=== PATIENT | female | born 1955 | race Caucasian/White ===

== ENCOUNTER 2018-03-12 20:38 | Emergency (ER) | payer BC, OTHER ==
[~2018-03-12] VITALS: Ht 157.5 cm; Wt 61.2 kg
--- NOTE | ~2018-03-12 | EKG ---
[place] [address] [facility] [place] [address] ELECTROCARDIOGRAM REPORT Name: KENDRICK GHOSH Room #: DEP [facility]#: [id number] Admission: 03/12/18 Attend Phys: Discharge: 03/12/18 Date of : 53 Report #: [id number] THIS REPORT FOR: //name// [facility] ED Test Date: 2018-03-12 Test Time: 20:53:35 Pat Name: KENDRICK GHOSH Department: Room: Gender: F Validation Architect: Octaviano JEREZ : 1955 Requested By: Phyllis Roberts Order Number: [id number] MD: Matteo Alberts Measurements Intervals [place] Rate: 102 P: 56 NC: 193 QRS: 59 QRSD: 88 T: 51 QT: 331 QTc: 432 Interpretive Statements Sinus tachycardia Minimal ST depression, diffuse leads Compared to ECG 07/31/2016 12:04:07 Heart rate has increased Electronically Signed On 03-13-2018 8:19:42 CDT by Matteo Alberts [email or web address] <ELECTRONICALLY SIGNED> By: Matteo Alberts MD, LOCATED WITHIN [facility] 03/13/18 08 52 52 Matteo Alberts MD, FACC /EPI
[~2018-03-12 20:38] MED LIST: ADULT LOW DOSE81 MG PO; ALEVE220 MG PO; APAP650 PO; APPEAREX2500 MCG PO; AVAPRO 150 MG150 M1 PO; BENICAR 5 MG5 M1 PO; BENICAR20 MG PO; CALCIUM PO; CO Q-10100 MG PO; COLACE100 MG PO; CRESTOR10 MG PO; CULTURELLE1 EAC1 PO; FISH OIL 1,0001 EAC5 PO; FOSAMAX 70 MG T70 M1 PO; GLUCOSAMINE CH1 EAC7; HYDROCODONE-AP1 EAC6 PO; LEVOTHYROXINE0.05 MG PO; MIRALAX17 GM PO; MOBIC7.5 M1 PO; MOBIC7.5 MG PO; NEXIUM40 MG PO; NORCO 5-325 TA1 EACH PO; NORFLEX100 MG PO; PERCOCET 5-3251 EACH PO; PRILOSEC20 MG PO; SIMVASTATIN40 MG PO; SYNTHROID75 MCG PO; TIZANIDINE HCL 22 M1 PO; TOPROL XL25 MG PO; TOPROL XL50 MG PO; TRAMADOL 50 MG50 MG PO; TYLENOL325 MG PO; VENTOLIN HFA 1818 GM INH; VITAMIN B-12500 MCG PO; VITAMIN D1000 UNI1 PO
[2018-03-12 22:36] LABS: ABSOLUTE NEUTROPHILS 6.3 thou/uL (1.4-8.2); BASOPHILS 0.7 % (0.0-2.0); EOSINOPHILS 1.2 % (0.0-3.0); HEMATOCRIT 36.1 % (37.0-47.0); HEMOGLOBIN 12.6 gm/dL (12.0-15.0); MCH 31.4 pg (26.0-34.0); MCHC 34.8 g/dL (28.0-37.0); MCV 90.4 fL (80.0-100.0); MONOCYTES 11.8 % (1.0-8.0); PLATELET COUNT 314 thou/uL (150-400); POLYS 72.3 % (36.0-66.0); WBC 8.7 thou/uL (4.0-11.0)
[2018-03-12 22:46] LABS: ANION GAP 8 mmol/L (7-16); BUN 9 mg/dL (7-18); CALCIUM 9.1 mg/dL (8.5-10.1); CHLORIDE 92 mmol/L (98-107); CO2 25 mmol/L (21-32); CREATININE 0.8 mg/dL (0.6-1.0); GLUCOSE 118 mg/dL (74-106); POTASSIUM 3.9 mmol/L (3.5-5.1); SODIUM 125 mmol/L (136-145)
[2018-03-12 22:54] LABS: ALBUMIN 3.6 g/dL (3.4-5.0); SGOT 23 U/L (15-37); SGPT 27 U/L (30-65); TOTAL BILIRUBIN 0.3 mg/dL (<0.1-1.0); TOTAL PROTEIN 7.4 g/dL (6.4-8.2); TROPONIN-I <0.06 ng/mL (<0.06)
[2018-03-12 23:12] VITALS: BP 162/66
== END 2018-03-12 23:18 | disposition home or self-care (01) ==
LOC: ER 20:38
PROVIDERS: Physician Assistant
DX: I10 Essential (primary) hypertension (principal); F41.9 Anxiety disorder, unspecified; N64.4 Mastodynia; E78.5 Hyperlipidemia, unspecified; Z95.5 Presence of coronary angioplasty implant and graft; E78.00 Pure hypercholesterolemia, unspecified; Z88.6 Allergy status to analgesic agent; Z88.8 Allergy status to other drugs, medicaments and biological substances; Z88.0 Allergy status to penicillin; Z88.1 Allergy status to other antibiotic agents; Z88.7 Allergy status to serum and vaccine

== ENCOUNTER → 2019-12-30 | Outpatient (CLI) | payer BC, OTHER | LOC: SJCVC 13:23 | DX: R94.31 Abnormal electrocardiogram [ECG] [EKG] (principal); I25.10 Atherosclerotic heart disease of native coronary artery without angina pectoris; I10 Essential (primary) hypertension; R55 Syncope and collapse; E78.5 Hyperlipidemia, unspecified; I65.23 Occlusion and stenosis of bilateral carotid arteries ==

== ENCOUNTER → 2020-03-18 | Outpatient (CLI) | payer OTHER, BC | LOC: SJCVC 11:37 | PROVIDERS: ATTEND Internal Medicine | DX: I25.10 Atherosclerotic heart disease of native coronary artery without angina pectoris (principal); I10 Essential (primary) hypertension; E78.5 Hyperlipidemia, unspecified; R55 Syncope and collapse; I65.23 Occlusion and stenosis of bilateral carotid arteries; E78.00 Pure hypercholesterolemia, unspecified; K21.9 Gastro-esophageal reflux disease without esophagitis; Z79.899 Other long term (current) drug therapy; Z82.49 Family history of ischemic heart disease and other diseases of the circulatory system ==

== ENCOUNTER 2020-04-02 12:01 | Emergency (ER) | payer OTHER, BC ==
[~2020-04-02] VITALS: Ht 154.9 cm; Wt 60.3 kg
[2020-04-02 13:58] LABS: ABSOLUTE NEUTROPHILS 7.1 thou/uL (1.4-8.2); BASOPHILS 0.5 % (0.0-2.0); EOSINOPHILS 1.6 % (0.0-3.0); HEMATOCRIT 35.8 % (37.0-47.0); HEMOGLOBIN 12.4 gm/dL (12.0-15.0); LYMPHOCYTES 9.9 % (24.0-44.0); MCHC 34.7 g/dL (28.0-37.0); MONOCYTES 10.2 % (1.0-8.0); PLATELET COUNT 298 thou/uL (150-400); POLYS 77.8 % (36.0-66.0); RBC 3.89 mil/uL (4.20-5.00); RDW 12.7 % (10.5-14.5); WBC 9.1 thou/uL (4.0-11.0)
[2020-04-02 14:17] LABS: ANION GAP 10 mmol/L (7-16); BUN 9 mg/dL (7-18); CHLORIDE 90 mmol/L (98-107); CO2 26 mmol/L (21-32); CREATININE 0.7 mg/dL (0.6-1.0); GLUCOSE 119 mg/dL (74-106); POTASSIUM 4.1 mmol/L (3.5-5.1); SODIUM 126 mmol/L (136-145)
[2020-04-02 14:28] LABS: ALBUMIN 3.6 g/dL (3.4-5.0); MAGNESIUM 1.9 mg/dL (1.8-2.4); SGOT 22 U/L (15-37); SGPT 27 U/L (30-65); TOTAL BILIRUBIN 0.3 mg/dL (0.2-1.0); TOTAL PROTEIN 6.8 g/dL (6.4-8.2); TROPONIN-I <0.06 ng/mL (<0.06)
[2020-04-02 15:40] VITALS: BP 140/53
--- NOTE | 2020-04-02 16:23 | EKG ---
[facility] [place] [address] ELECTROCARDIOGRAM REPORT Name: KENDRICK GHOSH Room #: DEP [facility]#: [id number] Admission: 04/02/20 Attend Phys: Discharge: 04/02/20 Date of : 53 Report #: [id number] THIS REPORT FOR: cc: Denis Zacarias MD, Michael D. MD Lundgren,Matteo Valencia MD [facility] ~ THIS REPORT FOR: //name// [facility] ED Test Date: 2020-04-02 Test Time: 12:24:26 Pat Name: KENDRICK GHOSH Department: Room: Gender: F Scalper Operator: DAO : 1955 Requested By: Ritchie Modi Order Number: [id number] MD: Matteo Alberts Measurements Intervals [place] Rate: 65 P: 34 CA: 174 QRS: 57 QRSD: 96 T: 54 QT: 399 QTc: 415 Interpretive Statements Sinus rhythm No significant abnormality Compared to ECG 03/12/2018 20:53:35 Sinus tachycardia no longer present Electronically Signed On 04-02-2020 16:23:43 CDT by Matteo Alberts [email or web address] <ELECTRONICALLY SIGNED> By: Matteo Alberts MD, FACC 04/02/20 1623 1224 1224 Matteo Alberts MD, [facility] /EPI
== END 2020-04-02 15:48 | disposition home or self-care (01) ==
LOC: ER 12:01
PROVIDERS: Emergency Medicine
DX: I10 Essential (primary) hypertension (principal); R07.89 Other chest pain; R42 Dizziness and giddiness; Z88.6 Allergy status to analgesic agent; Z88.0 Allergy status to penicillin; Z88.1 Allergy status to other antibiotic agents; Z88.7 Allergy status to serum and vaccine; Z79.82 Long term (current) use of aspirin; Z79.899 Other long term (current) drug therapy; Z98.890 Other specified postprocedural states

== ENCOUNTER → 2020-04-14 | Outpatient (CLI) | payer OTHER, BC | LOC: SJCVC 13:42 | PROVIDERS: ATTEND Internal Medicine | DX: I25.10 Atherosclerotic heart disease of native coronary artery without angina pectoris (principal); I10 Essential (primary) hypertension; E78.5 Hyperlipidemia, unspecified; R55 Syncope and collapse; I65.23 Occlusion and stenosis of bilateral carotid arteries; E78.00 Pure hypercholesterolemia, unspecified; K21.9 Gastro-esophageal reflux disease without esophagitis; Z79.899 Other long term (current) drug therapy; Z82.49 Family history of ischemic heart disease and other diseases of the circulatory system ==

== ENCOUNTER → 2020-07-01 | Outpatient (CLI) | payer MEDICARE | LOC: SJCVCIMAG 08:46 | PROVIDERS: ATTEND Internal Medicine | DX: I34.0 Nonrheumatic mitral (valve) insufficiency (principal); R00.0 Tachycardia, unspecified; I25.10 Atherosclerotic heart disease of native coronary artery without angina pectoris; I10 Essential (primary) hypertension; E78.5 Hyperlipidemia, unspecified; I65.23 Occlusion and stenosis of bilateral carotid arteries; Z79.899 Other long term (current) drug therapy ==

== ENCOUNTER → 2021-01-06 | Outpatient (CLI) | payer MEDICARE | LOC: SJCVC 14:17 | PROVIDERS: ATTEND Internal Medicine | DX: I25.10 Atherosclerotic heart disease of native coronary artery without angina pectoris (principal); I10 Essential (primary) hypertension; E78.5 Hyperlipidemia, unspecified; I65.23 Occlusion and stenosis of bilateral carotid arteries; K21.9 Gastro-esophageal reflux disease without esophagitis; M41.9 Scoliosis, unspecified; Z88.0 Allergy status to penicillin; Z88.8 Allergy status to other drugs, medicaments and biological substances; Z88.7 Allergy status to serum and vaccine; K22.2 Esophageal obstruction; E78.00 Pure hypercholesterolemia, unspecified; I73.9 Peripheral vascular disease, unspecified; Z95.5 Presence of coronary angioplasty implant and graft; Z79.899 Other long term (current) drug therapy ==

== ENCOUNTER 2021-01-13 18:15 | Emergency (ER) | payer MEDICARE ==
[~2021-01-13] VITALS: Ht 157.5 cm; Wt 61.2 kg
--- NOTE | ~2021-01-13 | EMS ---
[facility] [address] [place] [address] EMS Patient Care Report Name: KENDRICK GHOSH Room #: DEP [facility]#: [id number] Admission: 01/13/21 Attend Phys: Discharge: 01/13/21 Date of : 53 Report #: [id number] THIS REPORT FOR: //name// Report Transmitted: 01/13/2021 20:24 EMS Care Summary [facility] MED-ACT Incident [id number] @ 01/13/2021 17:28 Incident Location [address] [place] [address] Patient KENDRICK GHOSH Female, 65 Years 1955 Patient Address [address] [place] [address] Patient History Hypertension (HTN),Cardiac - Stent,Scoliosis,Back Surgery, Patient Allergies Penicillin allergy, Patient Medications Ventolin, Levothyroxine, Benicar, Fosamax, Metoprolol, Chief Complaint L wrist injury Disposition Transported No Lights/[place] Reason Unconscious/Fainting Transported To [facility] Narrative C- L wrist injury H- Patient is found sitting in a chair with [employer] crew present. Patient [facility] [address] [place] [address] EMS Patient Care Report Name: KENDRICK GHOSH Room #: DEP [place]#: [id number] Admission: 01/13/21 Attend Phys: Discharge: 01/13/21 Date of : 53 Report #: [id number] complains of feeling dizzy. Patient has an obvious left wrist injury. Patient reports falling and catching herself with her left arm. Patient is hypotensive and bradycardiac per S47 vitals and assessment. Patient denies feeling dizzy prior to fall. Patient complains of 10/10 pain. Patient denies hitting her head, LOC, or taking blood thinners. Patient reportedly lives in a home with her and is only at the facility to visit her father. A- See assessment tab. 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 Assessment completed. Patient laid supine on the stretcher and complaints of feeling dizzy and lightheaded immediately resolved. Vitals reassessed with improvement noted. Patient secured and loaded for transport. 20 gauge IV established. 12 lead EKG obtained. 50 mcg Fentanyl administered. Patient placed in semi-santana's position. T- Vitals repeated. threat monitoring analyst continued. Patient transported non-emergently to [facility]. Patient's condition remained unchanged throughout transport with a decrease in pain rating. D- Patient report given to RN at bedside. Patient placed into ER bed 9 via sheet pull without incident. Patient left in the care of the RN with belongings present. Initial Vitals @PTAP: 46,RI Suspected: false @17:57P: 59,RI Suspected: false @17:45P: 70,R: 18,BP: 143/84,Pain: 10/10,GCS: 15,SpO2: 97,Revised Trauma: 12, @18:10P: 64,R: 18,BP: 168/81,Pain: 6/10,GCS: 15,SpO2: 99,Revised Trauma: 12, @17:59P: 61,R: 18,BP: 159/83,Pain: 6/10,GCS: 15,SpO2: 95,Revised Trauma: 12, @PTAP: 44,R: 18,BP: 73/41,Pain: 10/10,GCS: 15,Temp: 97.5F,SpO2: 94,Revised Trauma: 10, Assessments @18:03MENTAL:No Abnormalities,SKIN:HEENT:LUNG SOUNDS:ABDOMEN:PELVIS//GI:No Abnormalities,EXTREMITIES:Left Arm: Other,PULSE:Radial: 2+ Normal,NEURO:No Abnormalities, Impression Injury of Wrist, Hand, or Fingers Procedures @17:55Fentanyl - 50 Micrograms (mcg) - Intravenous (IV)Response: Improved@17:5712-Lead ECGResponse: UnchangedSucceeded@17:52Saline Lock 10cc (20 ga) Site: Other Peripheral (Not Listed)Response: UnchangedSucceeded@PTASurgical Mask on PatientResponse: [place] [address] EMS Patient Care Report Name: KENDRICK GHOSH Room #: DEP [facility]#: [id number] Admission: 01/13/21 Attend Phys: Discharge: 01/13/21 Date of : 53 Report #: [id number] Timeline FLORIST DESIGNER,Surgical Mask on Patient,Response: Unchanged FLORIST DESIGNER,BP: / M,PULSE: 46,RR: R,SPO2: Ox,ETCO2: ,BG: ,PAIN: ,GCS: , FLORIST DESIGNER,BP: 73/41 M,PULSE: 44,RR: 18 R,SPO2: 94 Ox,ETCO2: ,BG: ,PAIN: 10,GCS: 15, 17:26,Call Received 17:26,Psap Call 17:28,Dispatched 17:28,En Route 17:37,On Scene 17:40,At Patient 17:45,BP: 143/84 M,PULSE: 70,RR: 18 R,SPO2: 97 Ox,ETCO2: ,BG: ,PAIN: 10,GCS: 15, 17:52,Saline Lock 10cc 20 ga Site: Other Peripheral (Not Listed),Response: UnchangedSucceeded, 17:55,Fentanyl - 50 Micrograms (mcg) - Intravenous (IV),Response: Improved 17:57,12-Lead ECG,Response: UnchangedSucceeded, 17:57,BP: / M,PULSE: 59,RR: R,SPO2: Ox,ETCO2: ,BG: ,PAIN: ,GCS: , 17:59,BP: 159/83 M,PULSE: 61,RR: 18 R,SPO2: 95 Ox,ETCO2: ,BG: ,PAIN: 6,GCS: 15, 18:01,Depart Scene 18:10,BP: 168/81 M,PULSE: 64,RR: 18 R,SPO2: 99 Ox,ETCO2: ,BG: ,PAIN: 6,GCS: 15, 18:11,At Destination 18:31,Call Closed Disclaimer [email or web address] Copyright 2020 [employer] This EMS Care Summary contains data elements from the applicable legal record (which may be displayed differently). It is designed to provide pertinent information for the following purposes: continuity of care, clinical quality, and state data reporting. The complete legal record is available to ED staff and administrators of the receiving hospital in [employer]'s Patient Tracker. All data is provided "as is."
[2021-01-13] MEDS ORDERED: TYLENOL325 M1 PO ×2 (20:24→22:24)
[2021-01-13 20:36] VITALS: BP 148/58
[2021-01-13] MEDS ORDERED: ALENDRONATE SOD70 MG PO (22:17)
[2021-01-13] MEDS ORDERED: COQ-10100 MG PO (22:18)
[2021-01-13] MEDS ORDERED: PROBIOTIC1 EAC7 PO (22:19)
[2021-01-13] MEDS ORDERED: C-10001000 MG PO (22:21)
[2021-01-13] MEDS ORDERED: VITAMIN D3250 MC1 PO (22:22)
[2021-01-13] MEDS ORDERED: ACETAMINOPHEN325 M1 PO (22:25)
[2021-01-13] MEDS ORDERED: ALLEGRA ALLERG180 MG PO (22:26)
[2021-01-13] MEDS ORDERED: FLONASE 0.05%50 MCG NARES (22:28)
== END 2021-01-13 20:43 | disposition home or self-care (01) ==
LOC: ER 18:15
DX: S52.532A Colles' fracture of left radius, initial encounter for closed fracture (principal); S09.90XA Unspecified injury of head, initial encounter; Z88.0 Allergy status to penicillin; Z88.1 Allergy status to other antibiotic agents; Z88.8 Allergy status to other drugs, medicaments and biological substances; Z88.6 Allergy status to analgesic agent; Z88.7 Allergy status to serum and vaccine; Z98.890 Other specified postprocedural states; W01.0XXA Fall on same level from slipping, tripping and stumbling without subsequent striking against object, initial encounter; Y93.89 Activity, other specified; Y92.89 Other specified places as the place of occurrence of the external cause; Y99.8 Other external cause status